=== PATIENT | male | born 1980 | race Caucasian/White ===

== ENCOUNTER 2016-11-03 07:06 | Day surgery (SDC) | payer OTHER ==
[~2016-11-03] VITALS: Ht 182.9 cm; Wt 101.1 kg
[~2016-11-03 07:06] MED LIST: CHANTIX1 MG PO; DICLOFENAC SODI50 MG PO; FLEXERIL10 MG PO; FLONASE ALLERG9.9 ML BOTH NARES; LEXAPRO20 MG PO; MEDROL DOSEPAK4 MG PO; NEURONTIN300 MG PO; NORCO 5/3251 TABLET PO; OXAYDO7.5 MG PO; PAMELOR10 MG PO; PERCOCET 5/31 TABLET PO; PERCOCET 7.51 TABLET PO; PREDNISONE10 M1 PO; TRILIPIX135 MG PO; VALIUM5 MG PO; ZANAFLEX2 MG PO; ZANAFLEX4 M1 PO
== END 2016-11-03 08:40 | disposition home or self-care (01) ==
LOC: PAIN 07:06 → SDC 07:30 → PAIN 08:40
PROC: 3E0S33Z Introduction of Anti-inflammatory into Epidural Space, Percutaneous Approach (ICD-10-PCS; principal; 2016-11-03)
DX: M54.14 Radiculopathy, thoracic region (principal); F41.9 Anxiety disorder, unspecified; M47.814 Spondylosis without myelopathy or radiculopathy, thoracic region; M79.1 Myalgia; M25.511 Pain in right shoulder; F17.200 Nicotine dependence, unspecified, uncomplicated; E78.5 Hyperlipidemia, unspecified; Z88.8 Allergy status to other drugs, medicaments and biological substances
CPT/HCPCS: J1030; J2250; J3010

== ENCOUNTER 2016-12-08 07:20 | Day surgery (SDC) | payer OTHER ==
[~2016-12-08] VITALS: Ht 182.9 cm; Wt 100.2 kg
[~2016-12-08 07:20] MED LIST changes: +OXAYDO5 MG PO; +PAMELOR25 MG PO
== END 2016-12-08 09:10 | disposition home or self-care (01) ==
LOC: PAIN 07:20 → SDC 08:30 → PAIN 09:10
PROC: 3E0S33Z Introduction of Anti-inflammatory into Epidural Space, Percutaneous Approach (ICD-10-PCS; principal; 2016-12-08)
DX: M54.14 Radiculopathy, thoracic region (principal); F41.9 Anxiety disorder, unspecified; M47.814 Spondylosis without myelopathy or radiculopathy, thoracic region; M79.1 Myalgia; M25.511 Pain in right shoulder; F17.200 Nicotine dependence, unspecified, uncomplicated; E78.5 Hyperlipidemia, unspecified; Z79.891 Long term (current) use of opiate analgesic
CPT/HCPCS: J1030; J1100; J2250; J3010

== ENCOUNTER 2017-04-03 12:29 | Day surgery (SDC) | payer OTHER ==
[~2017-04-03] VITALS: Ht 182.9 cm; Wt 92.0 kg
== END 2017-04-03 14:32 | disposition home or self-care (01) ==
LOC: PAIN 12:29 → SDC 13:00 → PAIN 14:32
DX: M47.24 Other spondylosis with radiculopathy, thoracic region (principal); M51.04 Intervertebral disc disorders with myelopathy, thoracic region; M79.1 Myalgia; E78.5 Hyperlipidemia, unspecified; E55.9 Vitamin D deficiency, unspecified; F17.210 Nicotine dependence, cigarettes, uncomplicated
CPT/HCPCS: J1030; J2250; J3010

== ENCOUNTER 2018-04-01 21:16 | Emergency (ER) | payer OTHER ==
[~2018-04-01] VITALS: Ht 182.9 cm; Wt 98.7 kg
[2018-04-01 22:35] LABS: HEMATOCRIT 46.2 % (38.0-50.0); HEMOGLOBIN 16.4 G/DL (12.5-16.6); MCH 31.1 PG (29.0-34.0); MCHC 35.5 G/DL (30.0-36.0); MCV 87.7 FL (86-99); PLATELET COUNT 337 K/uL (156-360); RBC DIS.WIDTH-CV 13.1 % (11.8-14.6); RBC DIS.WIDTH-SD 41.9 % (39-53); RED BLOOD COUNT 5.27 M/uL (4.00-5.50); WHITE BLOOD COUNT 13.8 K/uL (4.1-10.2)
[2018-04-01 22:44] LABS: D-DIMER ELISA < 150.00 ng/mLDDU (<230)
[2018-04-01 22:52] LABS: ALBUMIN 4.6 g/dL (3.2-4.8); CHLORIDE 108 mEq/L (99-109); POTASSIUM 3.7 mEq/L (3.7-5.4); SODIUM 142 mEq/L (136-147)
[2018-04-01 22:54] LABS: GLUCOSE 93 mg/dL (70-99); TOTAL PROTEIN 7.1 g/dL (6.4-8.3)
[2018-04-01 22:56] LABS: TOTAL BILIRUBIN 0.8 mg/dL (0.0-1.0)
[2018-04-01 22:58] LABS: ALKALINE PHOSPHATASE 49 IU/L (3-129); CREATININE 1.2 mg/dL (0.6-1.3); GFR ESTIMATE (CALCULATED) > 59 mL/min/ (58.99-99999)
[2018-04-01 22:59] LABS: AST (GOT) 18 IU/L (2-34); UREA NITROGEN (BUN) 10 mg/dL (9-23)
[2018-04-01 23:01] LABS: ALT (GPT) 16 IU/L (3-49)
[2018-04-01 23:02] LABS: TROP-I INTERPRETATION NEGATIVE; TROPONIN-I < 0.01 ng/mL (0.0-0.30)
[2018-04-02 00:53] VITALS: BP 106/63
== END 2018-04-02 00:54 | disposition home or self-care (01) ==
LOC: EME 21:16
PROVIDERS: Physician Assistant
DX: R07.9 Chest pain, unspecified (principal); F41.9 Anxiety disorder, unspecified; I45.10 Unspecified right bundle-branch block; F17.200 Nicotine dependence, unspecified, uncomplicated
CPT/HCPCS: 71046; 80053; 84484; 85027; 85379; 93005; 99281; 99285